=== PATIENT | female | born 1990 | race Caucasian/White ===

== ENCOUNTER 2016-06-28 22:54 | Emergency (ER) | payer OTHER ==
[~2016-06-28] VITALS: Ht 160 cm; Wt 65.8 kg
[2016-06-28 22:59] VITALS: BP 155/87
[2016-06-28] MEDS ORDERED: DELTASONE20 MG PO (23:25)
--- NOTE | 2016-06-28 23:25 | ED NEURO DEFICIT/STROKE ---
History of Present Illness General Chief Complaint: Neuro Symptoms/ Deficit Stated Complaint: DROOP TO SMILE ON RIGHT SIDE Source: patient Exam Limitations: no limitations Vital Signs & Intake/Output Vital Signs & Intake/Output Vital Signs Date Time Temp Pulse Resp B/P Pulse O2 O2 Flow FiO2 Ox Delivery Rate 06/28 2259 98.4 124 16 155/87 98 Room Air Room Air Allergies Coded Allergies: No Known Allergies (06/28/16) Reconcile Medications Prednisone (Deltasone) 20 MG TABLET 3 TAB PO DAILY BELLS PALSY Triage Note: PT TO TRIAGE WITH RIGHT SIDED ASYMMETRY TO SMILE. PT STATES SHE NOTICED IT 1.5 DAYS PRIOR. DENIES OTHER COMPLAINTS, ALL OTHER NEUROS ARE INTACT. Triage Nurses Notes Reviewed? yes : No Patient currently breastfeeds: No HPI: pt presents for eval of right facial droop that occurred abruptly yest. the droop has been constant and described as moderate in severity. no prior episodes. no assoc slurred speech or focal motor weakness. nothing seems to make symptoms better or worse. no recent flu like illnesses. pt states no hx of lyme, but has had a prior tick bite. Past History Travel History Traveled to [place] past 21 day No Medical History Any Pertinent Medical History? see below for history Neurological: NONE EENT: NONE Cardiovascular: NONE Respiratory: NONE Gastrointestinal: NONE Hepatic: NONE Renal: NONE Musculoskeletal: NONE Psychiatric: anxiety, opioid dependence Endocrine: NONE Blood Disorders: NONE Cancer(s): NONE SOURCING MANAGER/Reproductive: NONE Surgical History Surgical History: non-contributory Psychosocial History What is your primary language Bulgarian Tobacco Use: Never used ETOH Use: denies use Illicit Drug Use: denies illicit drug use Family History Hx Contributory? No Review of Systems Review of Systems Constitutional: Reports: no symptoms. EENTM: Reports: no symptoms. Respiratory: Reports: no symptoms. Cardiovascular: Reports: no symptoms. GI: Reports: no symptoms. Genitourinary: Reports: no symptoms. Musculoskeletal: Reports: no symptoms. Skin: Reports: no symptoms. Neurological/Psychological: Reports: see HPI. Hematologic/Endocrine: Reports: no symptoms. Immunologic/Allergic: Reports: no symptoms. All Other Systems: Reviewed and Negative Physical Exam Physical Exam General Appearance: see below Cranial Nerves: SLIGHT LEFT MOUTH DROOP WITH SOFTENING OF THE LEFT NASOLABIAL FOLD AND SLIGHT DELAY IN LEFT EYE BLINK Comments: gen: wn, wd, no acute resp distress head: nc/at eyes: normal inspection ears: normal inspection nose: normal inspection throat/mouth: moist mucosa neck: supple, from, no goiter heart: rrr, no mrg lungs: cta bilaterally with normal air entry chest: nt abd: soft, nd, normal bowel sounds, nontender back: normal range of motion ext: normal range of motion, no cyanosis, clubbing or edema skin: warm and dry circulatory: normal radial pulses neuro: cn 2-12-see above, speech clear, gait stable psych: calm, cooperative, no apparent delusion, hallucinations or pressured speech Core Measures CVA/TIA Diagnosis: No Severe Sepsis Present: No Septic Shock Present: No Progress Differential Diagnosis: Villarreal's Palsy, stroke Plan of Care: Orders Procedure Date/time Status LYME TITRE 06/28 2319 Active Current Medications Sig/Dinorah Start time Last Medication Dose Stop Time Status Admin Prednisone 60 MG ONCE ONE 06/28 2329 AC 06/28 2330 Initial ED EKG: none Comments: with observation of pts face during hx and exam, i noticed a lag in her blinking of the left eye. pts facial droop actually involves the left side of the face ( loss of nasolabial fold). i feel given the pts age and exam findings she is experiencing villarreal palsy. Departure Departure Disposition: HOME OR SELF CARE Condition: Stable Clinical Impression Primary Impression: Villarreal's palsy Additional Instructions: Prednisone as prescribed. If you lose her ability to close your left eye fully please use artificial tears or tape the eye shut when sleeping. Follow-up with your primary care doctor within the week for reevaluation. Return if any concerns or sudden worsening. Thank you for choosing the [facility] for your care. It was a pleasure to serve you today. Ambrose Villarreal M.D. [facility] Departure Forms: Customer Survey General Discharge Information Prescriptions: Current Visit Scripts Prednisone (Deltasone) 3 TAB PO DAILY #6 TAB
== END 2016-06-28 23:43 ==
LOC: ERH 22:54
DX: G51.0 Bell's palsy (principal)
CPT/HCPCS: 86618